=== PATIENT | female | born 1980 | race Caucasian/White ===

== ENCOUNTER 2020-12-03 02:52 | Emergency (ER) | payer OTHER, SELFPAY ==
[2020-12-03] VITALS (8 sets, daily range): BP systolic 99–109; BP diastolic 63–82; PULSE 74–101; RESP 18; TEMP 36.7; O2SAT 97–98
--- NOTE | 2020-12-03 03:00 | RT.EKG_ITS ---
APPROVED REPORT Exam: Resting ECG Reason for Exam: epigastric pain Patient Location: E HR:86 bpm ECG Measurements Heart Rate 86 AXIS AK 132 P 48 QRSd 75 QRS -26 QT 353 T 52 QTc 423 Conclusion Sinus rhythm...normal P axis, V-rate 60- 99 Physician: no stemi
--- NOTE | 2020-12-03 03:00 | DI.CT_ITS ---
Exam(s) CT ABDOMEN PELVIS W EXAM: CT ABDOMEN PELVIS W CLINICAL HISTORY: periumbilical pain, vomiting. TECHNIQUE: Imaging Protocol: Axial computed tomography images with coronal and sagittal reformatted images were created and reviewed CONTRAST MATERIAL: Intravenous: Omnipaque 350 Contrast volume:100cc Oral: no COMPARISON: No exams were available for comparison FINDINGS: ABDOMEN: Lung Bases: Normal where visualized. Liver: Normal density. Small cysts. No suspicious mass. Gallbladder and biliary tract: No radiodense calculus or dilation. Pancreas: Normal density, no abnormal calcifications or inflammatory process. Spleen: Normal. Kidneys: Normal size, contour and axis. No radiodense stones or obstructive uropathy. No masses seen. Adrenal glands: No masses seen. Abdominal Aorta: Abdominal portion non-dilated. PELVIS: Bladder: Nearly empty, no gross wall thickening. Bowel: Dilated, thick walled distal and terminal ileum, suspicious for Crohn's Disease. No obstructi on . Peritoneal cavity: Small amount of fluid around spleen. Fluid in pelvis. No abcess or free air. Bones: Within normal limits. Reproductive organs: Within normal limits. Lymph nodes: Unremarkable. Impression: Thick walled distal ileum, suspicious for Crohn's disease.. RADIATION DOSE DELIVERED: 721.19mGy.cm Total DLP DATA REPOSITORY: All CT scans at this facility are submitted to the National Radiology Data Registry (NRDR) Dose Index Registry (DIR) with the [employer] ([employer]). RADIATION OPTIMIZATION: All CT scans at this facility use at least one of these dose optimization te chniques: automated exposure control; mA and/or kV adjustment per patient size (includes targeted exa ms where dose is matched to clinical indication); or iterative reconstruction.
--- NOTE | 2020-12-03 03:04 | W.ED.GENAD ---
Discharge Plan Disposition Patient Disposition: HOME Condition: Good Discharge Details Clinical Impression: Ileitis Primary Care Provider: Tameka Silver ED Provider: Cameron Rossi Home Meds and New Rx's Prescriptions: Continued Control Pills 1 tab PO DAILY RF: 0 Multi Vitamin 1 tab PO DAILY RF: 0 Discharge Instructions Instructions: Enteritis (ED) Additional Instructions: At this time you show evidence of mild irritation and inflammation of the small intestines. This is likely from something that you ate. With no history or family history of Crohn's disease this would be a much less likely option. Please take Tylenol, 1000 mg every 6 hours as needed for pain. Stick with an easy diet of liquid gradually transitioning to oatmeal, rice, and bread and of the next 48 hours. If you notice any worsening of your symptoms, or any new symptoms such as vomiting, diarrhea, fever, chills, shortness of breath, chest pain, numbness, weakness, or fainting , please return immediately to the emergency department for reevaluation. Please follow up with your primary care provider as soon as possible for reassessment and reevaluation. As always, it was a pleasure participating in your medical care today. Referrals: Tameka Silver [Primary Care Provider] - Medical Decision Making Patient is a 40-year-old female with past medical history of kidney stones and presents today for evaluation of epigastric pain and vomiting. Patient states that around 10 PM this evening she became nauseous and developed mild gradually worsening epigastric pain which she describes as an achy cramping sensation. Pain goes from the initial epigastric region and travels down toward midline. She denies any pulsations of the pain, but does admit to waxing and waning of her symptoms. She has had a few episodes of vomiting, but denies any hematemesis, dysuria, vaginal discharge. She denies any diarrhea or constipation. The patient has had a kidney stone with states that this feels completely different. The patient had clamped the week, probably significant other alcohol. No other symptoms. Patient developed worsening pain while having speed bump of her weight and. No other complaints at this time. No other modifying factors. Exam demonstrates mild periumbilical tenderness. Positive heel strike on the right, however over the CAT scan of the abdomen is otherwise unremarkable. Abdominal exam appears nonsurgical at this point. She denies any significant recent alcohol intake. Differential includes pancreatitis, less likely appendicitis, less likely abdominal pathology. We will get a CT scan with contrast to evaluate for emergent etiologies, give Ofirmev for pain, gently rehydrate monitor closely and reassess. 4:19 AM Laboratory work-up is returned, mild white count of 16, no bandemia. Electrolytes normal. Troponin EKG and lipase normal. Urinalysis negative for infection. Patient was rehydrated, she was given Ofirmev. After all of her meds she had complete resolution of her pain. Repeat abdominal exam shows no pain whatsoever, patient feels well and feels comfortable going home. CT scan results demonstrate evidence of thickened terminal ileum bowel loops, suggestive of ileitis. She has no personal or family history of Crohn's disease or inflammatory conditions like ulcerative colitis. Symptoms with the absence of diarrhea and blood are certainly less likely for an autoimmune or inflammatory component more likely to be infectious, likely from the crab cake she ate this evening or something else earlier in the evening. Patient is notably hemodynamically stable, no signs of an acute surgical abdomen. With the patient's notable clinical improvement I do feel that she is stable for discharge at this time. Recommend liquid diet transitioning to a bland diet for the next 48 hours. Discussed red flags which to return. I have extensively reviewed the treatment plan and discharge instructions with the patient and their family. I have addressed all patient concerns at this time. The patient and family was made aware of what symptoms to monitor for that would warrant a return to the emergency department. Discussed the plan with the patient and family, they demonstrate verbal understanding and agreement with our assessment and plan at this time. The documentation in this chart was dictated using [employer] dictation software. Please excuse any dictation errors. I did discuss with the patient importance of follow-up and further testing if her symptoms do not improve 4 to 48 hours. FINDINGS: Lungs: Unremarkable. Lung bases are clear. Liver: Multiple small simple hepatic cysts. Gallbladder and bile ducts: Unremarkable. No calcified stones. No ductal dilation. Pancreas: Unremarkable. No ductal dilation. Spleen: Unremarkable. No splenomegaly. Adrenal glands: Normal. No mass. Kidneys and ureters: Unremarkable. No hydronephrosis. Stomach and bowel: Multiple loops of terminal ileum are markedly abnormal with thickened wall. Inflammatory infectious process suspected. Crohn's disease to be excluded. small amount of free fluid in the pelvis. Appendix: No evidence of appendicitis. Intraperitoneal space: Small amount of fluid about the spleen. The Vasculature: Unremarkable. No abdominal aortic aneurysm. Lymph nodes: Unremarkable. No enlarged lymph nodes. Urinary bladder: Unremarkable as visualized. Reproductive: Unremarkable as visualized. Bones/joints: Unremarkable. No acute fracture. Soft tissues: Unremarkable. IMPRESSION: Multiple abnormal terminal ileum bowel loops with thickened wall suggesting ileitis, potential etiology includes infectious, inflammatory, Crohn's disease. Thank you for allowing us to participate in the care of your patient. Dictated and Authenticated by: Lisa Nuno MD 12/03/2020 4:05 AM Eastern Time ([place] & [place]) HPI General Date/Time Provider Initiated Documentation: 12/03/20 02:54. HPI Narrative: Patient is a 40-year-old female with past medical history of kidney stones and presents today for evaluation of epigastric pain and vomiting. Patient states that around 10 PM this evening she became nauseous and developed mild gradually worsening epigastric pain which she describes as an achy cramping sensation. Pain goes from the initial epigastric region and travels down toward midline. She denies any pulsations of the pain, but does admit to waxing and waning of her symptoms. She has had a few episodes of vomiting, but denies any hematemesis, dysuria, vaginal discharge. She denies any diarrhea or constipation. The patient has had a kidney stone with states that this feels completely different. The patient had clamped the week, probably significant other alcohol. No other symptoms. Patient developed worsening pain while having speed bump of her weight and. No other complaints at this time. No other modifying factors. Related Data Home Medications Medication Instructions Recorded Confirmed Control Pills 1 tab PO DAILY 12/14/17 12/03/20 Multi Vitamin 1 tab PO DAILY 12/14/17 12/03/20 Allergies Allergy/AdvReac Type Severity Reaction Status Date / Time No Known Allergies Allergy Unverified 12/03/20 03:03 General Stated Complaint: Nausea/Vomit/Diar EMILY: 3 Review of Systems All systems reviewed & are unremarkable except as noted in HPI and below [facility] Social History Smoking/Tobacco Use Status: Never Smoking risk assessment performed?: Yes Alcohol Intake: never Substance use type: does not use Do you feel safe at home: Yes Do you feel safe in your relationship?: Yes Exam Narrative Exam Narrative: 1.Const: Well-nourished, Well-developed, appearing stated age 2.Eyes: PERRL, no conjunctival injection, and symmetrical lids. 3.ENT: Atraumatic external nose and ears. Moist MM. Neck: Symmetric, trachea midline, No thyromegaly. 4.CVS: +S1/S2, No murmurs or gallops. Peripheral pulses 2+ and equal in all extremities. Brisk capillary refill in all extremities. 5.RESP: Unlabored respiratory effort. Clear to auscultation bilaterally. No wheezes rales or rhonchi 6.GI: Soft, nondistended, mild tenderness in the periumbilical region specifically. No pain or McBurney's point, negative Masterson sign. Minimal epigastric tenderness. No lower pelvic tenderness. No flank or CVA tenderness. Negative Rovsing sign. Negative obturator and psoas sign. Positive heel strike test of the right for irritation to the periumbilical region. 7.MSK: Normocephalic/Atraumatic, Extremities w/o deformity or ttp No cyanosis or clubbing, Normal movement of all extremities 8.Skin: Warm, Dry. No rashes or lesions. 9.Neuro: nuclear medical tech II-XII grossly intact. Sensation grossly intact, no focal neurologic deficits. 10.Psych: (AAO) x3. Appropriate mood and affect Course Vital Signs Vital signs: Vital Signs Temperature 36.7 C 12/03/20 02:56 Pulse 101 H 12/03/20 02:56 Respiratory Rate 18 12/03/20 02:56 Blood Pressure 109/82 12/03/20 02:56 Pulse Oximetry 97 12/03/20 02:56 Temperature 36.7 C 12/03/20 02:56 Temperature Source Skin 12/03/20 02:56 Pulse 101 H 12/03/20 02:56 Respiratory Rate 18 12/03/20 02:56 Respiratory Effort Non-Labored 12/03/20 02:59 Blood Pressure 109/82 12/03/20 02:56 Blood Pressure Position Sitting 12/03/20 02:56 Pulse Oximetry 97 12/03/20 02:56 Oxygen Delivery Method Room Air 12/03/20 02:56 Oxygen Flow Rate 0 12/03/20 02:56
[2020-12-03] MEDS: Omnipaque 350 MG/ML 100 ML BTL IJ (03:10)
[2020-12-03] MEDS: Normal Saline - Diluent 50 ML VIAL IV (03:11)
[2020-12-03] MEDS: Ondansetron 4 MG/2 ML VIAL IVP (03:15)
[2020-12-03] MEDS: ACETAMINOPHEN 1,000 MG/100 ML BTL 400 MG IVPB (03:16)
[2020-12-03 03:19] LABS: Bilirubin Small (Negative); Blood Negative (Negative); Clarity Sl Cloudy (Clear); Glucose Negative (Negative); Ketones 80 mg/dL (Negative); Leukocyte Esterase Negative (Negative); Nitrite Negative (Negative); Specific Gravity >= 1.030 (1.005-1.025); Urobilinogen 0.2 EU/dL (Up TO 0.2); pH 5.5 (5-8)
[2020-12-03 03:19] LABS: Abs Immature Grans 0.06 10^3/uL (0.0-0.06); Absolute Basophil Count 0.03 10^3/uL (0.0-0.2); Absolute Eosinophil Count 0.14 10^3/uL (0.0-0.7); Absolute Monocyte Count 0.91 10^3/uL (0.1-0.8); Absolute Neutrophil Count 13.34 10^3/uL (1.2-6.7); Basophils % 0.2; Eosinophils % 0.8; HCT 45.7 % (36.0-46.0); HGB 15.2 g/dL (11.2-15.7); Immature Grans % 0.4; Lymphocytes % 14.2; MCH 30.5 pg (27.0-33.0); MCHC 33.3 % (32.0-36.0); MCV 91.6 fL (80-95); MPV 10.8 fL (8.0-11.0); Monocytes % 5.4; Nucleated RBC 0 %; Platelet Count 269 10^3/uL (130-400); RBC 4.99 10^6/uL (3.93-5.22); RDW 12.5 % (11.7-14.6); RDW-SD 41.7 fL; WBC 16.89 10^3/uL (4.4-10.8)
[2020-12-03 03:22] LABS: Bacteria Few HPF (Negative); C & S Indicated? C&S Done As Ordered; Casts Negative LPF (Negative); Crystals Negative HPF (Negative); Epithelial Cells Few HPF (Negative); Mucus Trace (Negative); RBC Negative HPF (0-2); WBC Negative HPF (0-5)
[2020-12-03] MEDS: Lactated Ringers 1,000 ML 1000 ML IV (03:22)
[2020-12-03 03:38] LABS: ALT 15 U/L (14-59); AST 13 U/L (15-37); Albumin 3.6 g/dL (3.4-5.0); Alkaline Phosphatase 62 U/L (46-116); Anion Gap 12.1 mmol/L (3-11); BUN 12 mg/dL (7-18); Bilirubin, Total 0.6 mg/dL (0.2-1.0); CO2 25.9 mmol/L (21.0-32.0); CREATININE 0.8 mg/dL (0.55-1.02); Calcium 8.5 mg/dL (8.5-10.1); Chloride 105 mmol/L (98-107); Glucose 99 mg/dL (74-106); Lipase 71 U/L (73-393); Potassium 3.5 mmol/L (3.5-5.1); Sodium 143 mmol/L (136-145); Total Protein 7.2 g/dL (6.4-8.2); Troponin I < 0.05 ng/mL (<0.06)
--- NOTE | 2020-12-03 04:06 | DI.VRAD_ITS ---
PROCEDURE INFORMATION: Exam: CT Abdomen And Pelvis With Contrast Exam date and time: 12/03/2020 3:05 AM Age: 40 years old Clinical indication: Abdominal pain; Patient HX: Periumbilical pain, vomiting TECHNIQUE: Imaging protocol: Computed tomography of the abdomen and pelvis with contrast. COMPARISON: CT RENAL COLIC WO CONTRAST 12/14/2017 2:13 AM FINDINGS: Lungs: Unremarkable. Lung bases are clear. Liver: Multiple small simple hepatic cysts. Gallbladder and bile ducts: Unremarkable. No calcified stones. No ductal dilation. Pancreas: Unremarkable. No ductal dilation. Spleen: Unremarkable. No splenomegaly. Adrenal glands: Normal. No mass. Kidneys and ureters: Unremarkable. No hydronephrosis. Stomach and bowel: Multiple loops of terminal ileum are markedly abnormal with thickened wall. Inflammatory infectious process suspected. Crohn's disease to be excluded. small amount of free fluid in the pelvis. Appendix: No evidence of appendicitis. Intraperitoneal space: Small amount of fluid about the spleen. The Vasculature: Unremarkable. No abdominal aortic aneurysm. Lymph nodes: Unremarkable. No enlarged lymph nodes. Urinary bladder: Unremarkable as visualized. Reproductive: Unremarkable as visualized. Bones/joints: Unremarkable. No acute fracture. Soft tissues: Unremarkable. IMPRESSION: Multiple abnormal terminal ileum bowel loops with thickened wall suggesting ileitis, potential etiology includes infectious, inflammatory, Crohn's disease. Dictated and Authenticated by: Lisa Nuno MD. Ordering:EMILIANO Barnes MD
[2020-12-03] MEDS: Ondansetron O.D.T. 4 MG TABEF, 3 TABS/BTL PO (04:26)
== END 2020-12-03 04:30 | disposition home or self-care (01) ==
PROVIDERS: Emergency Provider Student in an Organized Health Care Education/Training Program; PCP Family Medicine
DX: K52.9 Noninfective gastroenteritis and colitis, unspecified (principal); R10.33 Periumbilical pain; R11.2 Nausea with vomiting, unspecified
CPT/HCPCS: 36415; 80053; 81025; 83690; 93005; 96361; 96374; 96375; 99285; 74177; 81003; 81015; 84484; 85025; 87086; 93010; 99284; J0131; J2405; J3490